=== PATIENT | male | born 2000 | race Caucasian/White ===

== ENCOUNTER 2021-08-17 18:44 | Emergency (ER) | payer BC ==
[~2021-08-17] VITALS: Ht 167.6 cm; Wt 59.0 kg
[~2021-08-17 18:44] MED LIST: FLOXIN OTI0.3 %/5 M1 OT; NOHOMEMEDICATIONS
[2021-08-17] MEDS ORDERED: KEPPRA XR500 MG PO (19:08)
[2021-08-17] MEDS ORDERED: [UNRECOGNIZED DRUG - REMARK] (19:09)
[2021-08-17] MEDS ORDERED: AMOX TR-K CLV1 EAC4 PO (20:53)
[2021-08-17 23:05] VITALS: BP 123/79
== END 2021-08-17 23:05 | disposition home or self-care (01) ==
LOC: M.ERS 18:44
DX: S61.213A Laceration without foreign body of left middle finger without damage to nail, initial encounter (principal); J45.909 Unspecified asthma, uncomplicated; Z79.899 Other long term (current) drug therapy; W54.0XXA Bitten by dog, initial encounter; Y93.89 Activity, other specified; Y92.89 Other specified places as the place of occurrence of the external cause; Y99.8 Other external cause status